=== PATIENT | female | born 1985 | race Caucasian/White ===

== ENCOUNTER → 2016-07-04 | Outpatient (CLI) | payer MEDICAID ==
[~2016-07-04] MED LIST: CEPH-38 PO; DOCU-143 PO; FERR-65 PO; HYDR25CA5 PO; IBUP-1773 PO; NITR-65 PO; ONDA4TAB8 PO; OXYC-197 PO; PREN1TAB86 PO; SULF1TAB38 PO
--- OUTSIDE RECORDS SUMMARY | 2016-07-04 10:56 | XMS REPORT | Continuity of Care Document ---
Author Author Interface Organization Interface Address Unknown Phone Unavailable Problems Problem Status Onset Date Classification Date Reported Comments Source Encounter for other screening for genetic and chromosomal anomalies Active [facility] Medications Medication Details Route Status Patient Instructions Ordering Provider Order Date Source Allergies, Adverse Reactions, Alerts Substance Category Reaction Severity Reaction type Status Date Reported Comments Source Immunizations Immunization Date Given Site Status Last Updated Comments Source Results Order Name Results Value Reference Range Date Interpretation Comments Source Parent NGS Parent NGS Genomics Case Created 03/08 NA This order is for collection purposes only. The Genomics case will be created seperately.
[facility] zzzMole Gen zzzMole Gen 03/08/2016 [facility] Final Report Final Report Blood DNA isolation/storage for future study. Lab use only. Electronically signed by: Tish Donovan 03/14/2016 10:05</br> 03/08/2016 Electronically signed by: Tish Donovan 03/14/2016 10:05 [facility] Vital Signs Vital Sign Value Date Comments Source Encounters Location Location Details Encounter Type Encounter Number Reason For Visit Attending Provider ADM Date DC Date Status Source [facility] REF [id number] Amadeo Trimble 03/08/2016 03/08/2016 [facility] Procedures Procedure Code Date Perfomer Comments Source
--- NOTE | 2016-07-04 11:48 | Diagnostic Imaging Report ---
First trimester OB ultrasound. INDICATION: Dating. FINDINGS: There is a normal-appearing single intrauterine . An embryo is seen with cardiac activity at 150 beats per minute. The crown-rump length is at 11 weeks and 3 days. IONA is 01/20/17. The ovaries are obscured by bowel gas. IMPRESSION: Live single intrauterine . Dictated by: Dictated on workstation # [id number]
== END ==
LOC: RAD 10:53
PROVIDERS: ATTEND Family Medicine
DX: Z34.81 Encounter for supervision of other normal pregnancy, first trimester (principal)
CPT/HCPCS: 76801

== ENCOUNTER → 2016-12-08 | Outpatient (CLI) | payer MEDICAID | LOC: LAB 09:23 | PROVIDERS: ATTEND Family Medicine | DX: O99.810 Abnormal glucose complicating pregnancy (principal); Z3A.00 Weeks of gestation of pregnancy not specified | CPT/HCPCS: 36415; 82951; 82952; 82962 ==

== ENCOUNTER → 2016-12-20 | Outpatient (CLI) | payer MEDICAID ==
[~2016-12-20] MED LIST changes: +DOCU100C37 PO; +GLYB1.253 PO; +HYDR-3812 PO; +SERT25TA PO
--- NOTE | 2016-12-20 17:05 | Diagnostic Imaging Report ---
INDICATION: Maternal gestational diabetes. EXAMINATION: Ultrasonography was obtained. FINDINGS: Powell intrauterine in cephalic presentation. cardiac activity is present with a rate of 150 beats per minute. Amniotic fluid index is 14 cm. breathing and body movement as well as tone are documented. IMPRESSION: Normal biophysical profile score of 8/8. Dictated by: Dictated on workstation # [id number]
[2016-12-20 17:34] VITALS: BP 130/72
== END ==
LOC: RAD 16:26
PROVIDERS: ATTEND Family Medicine
DX: O24.419 Gestational diabetes mellitus in pregnancy, unspecified control (principal); Z3A.00 Weeks of gestation of pregnancy not specified
CPT/HCPCS: 76819

== ENCOUNTER 2016-12-27 12:57 | Outpatient (CLI) | payer MEDICAID ==
[~2016-12-27] VITALS: Ht 162.6 cm; Wt 113.4 kg
[~2016-12-27 12:57] MED LIST changes: -DOCU100C37 PO; -GLYB1.253 PO; -HYDR-3812 PO; -SERT25TA PO
[2016-12-27] MEDS ORDERED: SERT25TA PO (13:10)
[2016-12-27] MEDS ORDERED: GLYB1.253 PO (13:10)
[2016-12-27 13:11] VITALS: BP 118/68
== END 2016-12-27 13:32 | disposition home or self-care (01) ==
LOC: PREOP 12:57
PROVIDERS: ATTEND Obstetrics & Gynecology
DX: Z01.818 Encounter for other preprocedural examination (principal); O34.219 Maternal care for unspecified type scar from previous cesarean delivery; Z3A.00 Weeks of gestation of pregnancy not specified
CPT/HCPCS: 87081

== ENCOUNTER 2017-01-01 06:02 | Inpatient (IN) | payer MEDICAID ==
[~2017-01-01] VITALS: Ht 162.6 cm; Wt 112.9 kg
[2017-01-01] VITALS (9 sets, daily range): BP systolic 113–124; BP diastolic 54–72
[~2017-01-01 06:02] MED LIST changes: +GLYB1.253 PO; +SERT25TA PO; +ceFAZolin 2 GM/50 ML NS 50 ML ONE
[2017-01-01] MEDS ORDERED: LACTATED RINGERS 1,000 ML IV PRN (06:10)
--- OUTSIDE RECORDS SUMMARY | 2017-01-01 06:10 | XMS REPORT ---
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
--- OUTSIDE RECORDS SUMMARY | 2017-01-01 06:10 | XMS REPORT ---
Author Author PAYTON SANTILLAN Organization eClinicalWorks Address Unknown Phone Unavailable Care Team Providers Care Furniture Crater Name Role Phone PAYTON SANTILLAN CP Unavailable Allergies, Adverse Reactions, Alerts Substance Reaction Event Type N.K.D.A. Info Not Available Non Drug Allergy Problems Problem Type Condition Code Onset Dates Condition Status Assessment Sore throat J02.9 Active Assessment Z33.1 Active Assessment Allergic rhinitis J30.9 Active Medications No Known Medications Procedures Procedure Coding System Code Date Office Visit, New Pt., Level 3 CPT-4 81205 September 12, 2015 STREP A ASSAY W/OPTIC CPT-4 40078 September 12, 2015 Vital Signs Date/Time: September 12, 2015 Temperature 98 F Weight 229 lbs Height 64 in BMI 39.30 Index Blood Pressure Diastolic 66 mmHg Blood Pressure Systolic 118 mmHg Cardiac Monitoring Heart Rate 80 bpm Results Name Result Date Reference Range Unit Abnormality Flag STREP A (IN HOUSE) ----STREP A Negative [id number] ----Control + [id number] ----Lot # [id number] ----Exp date [id number] Summary Purpose eClinicalWorks Submission
--- OUTSIDE RECORDS SUMMARY | 2017-01-01 06:10 | XMS REPORT ---
Author Author LEDA HAILE [facility] eClinicalWorks Address Unknown Phone Unavailable Care Team Providers Care Director Semiconductor Name Role Phone LEDA HAILE CP Unavailable Allergies No Known Allergies Problems Problem Type Condition Code Onset Dates Condition Status Assessment Fungal infection of skin B36.9 Active Problem Previous section Z98.89 Active Problem care, subsequent , second trimester Z34.82 Active Problem Intrauterine growth restriction (IUGR) affecting care of mother, second trimester, single gestation O36.5920 Active Assessment Third trimester at less than 36 weeks Z33.1 Active Assessment Encounter for immunization Z23 Active Problem Streptococcus, group B, as the cause of diseases classified elsewhere B95.1 Active Problem Unspecified infection of urinary tract in , second trimester O23.42 Active Medications Medication Code System Code Instructions Start Date End Date Status Dosage Vitamins [facility] [address]-92 (Dis) Orally not defined Clotrimazole [facility] [address]-68 1 % Externally Twice a day December 14, 2015 1 application to affected area Procedures Procedure Coding System Code Date TDAP (BOOSTRIX) CPT-4 07482 December 14, 2015 SINGLE IMMUNIZATION ADMIN CPT-4 28752 December 14, 2015 URINE-NO MICRO CPT-4 74385 December 14, 2015 Vital Signs Date/Time: December 14, 2015 Cardiac Monitoring Heart Rate 76 bpm Weight 225.0 lbs Height 64 in BMI 38.62 Index Blood Pressure Diastolic 74 mmHg Blood Pressure Systolic 123 mmHg Results No Known Results Immunizations Vaccine Administration Date TDAP (BOOSTRIX) December 14, 2015 Summary Purpose eClinicalWorks Submission
--- OUTSIDE RECORDS SUMMARY | 2017-01-01 06:10 | XMS REPORT ---
Author Author LEDA HAILE [facility] eClinicalWorks Address Unknown Phone Unavailable Care Team Providers Care Hub Cutter Name Role Phone LEDA HAILE CP Unavailable Allergies No Known Allergies Problems Problem Type Condition Code Onset Dates Condition Status Problem Previous section Z98.89 Active Problem care, subsequent , second trimester Z34.82 Active Problem Intrauterine growth restriction (IUGR) affecting care of mother, second trimester, single gestation O36.5920 Active Assessment Third trimester at less than 36 weeks Z33.1 Active Assessment 33 weeks gestation of Z3A.33 Active Problem Streptococcus, group B, as the cause of diseases classified elsewhere B95.1 Active Problem Unspecified infection of urinary tract in , second trimester O23.42 Active Medications Medication Code System Code Instructions Start Date End Date Status Dosage Vitamins [facility] [address]-72 (Dis) Orally not defined Clotrimazole [facility] [address]-67 1 % Externally Twice a day December 14, 2015 1 application to affected area Procedures Procedure Coding System Code Date Office Visit, Est Pt., Level 2 CPT-4 27589 Dec 28, 2015 URINE-NO MICRO CPT-4 54827 Dec 28, 2015 Vital Signs Date/Time: Dec 28, 2015 Cardiac Monitoring Heart Rate 88 bpm Weight 223.6 lbs Height 64 in BMI 38.381 Index Blood Pressure Diastolic 69 mmHg Blood Pressure Systolic 131 mmHg Results No Known Results Summary Purpose eClinicalWorks Submission
--- OUTSIDE RECORDS SUMMARY | 2017-01-01 06:11 | XMS REPORT ---
Author Author LEDA HAILE [facility] eClinicalWorks Address Unknown Phone Unavailable Care Team Providers Care Stock Holder Name Role Phone LEDA HAILE Unavailable Allergies No Known Allergies Problems No Known Problems Medications No Known Medications Results No Known Results Summary Purpose eClinicalWorks Submission
--- OUTSIDE RECORDS SUMMARY | 2017-01-01 06:11 | XMS REPORT ---
Author Author LEDA HAILE Organization [facility] Address [address] [place] [address] Care Team Providers Care Boring Mill Set Up Operator Name Role Phone ALICE HAILEY Unavailable PROBLEMS Type Condition ICD9-CM Code YGU56-LT Code Onset Dates Condition Status SNOMED Code Assessment care, subsequent in third trimester Z34.83 Jan, Active [id number] Assessment 37 weeks gestation of Z3A.37 Jan, Active [id number] ALLERGIES Unknown Allergies SOCIAL HISTORY No smoking Hx information available PLAN OF CARE VITAL SIGNS Height 64 in 2016-01-24 Weight 228.4 lbs 2016-01-24 Heart Rate 72 bpm 2016-01-24 Respiratory Rate 18 2016-01-24 BMI 39.205 kg/m2 2016-01-24 Blood pressure systolic 132 mmHg 2016-01-24 Blood pressure diastolic 83 mmHg 2016-01-24 MEDICATIONS Medication Instructions Dosage Frequency Start Date End Date Duration Status Vitamins (Dis) Active RESULTS Name Result Date Reference Range UA LONG DIP (IN HOUSE) 2016-01-24 Lot # [id number] Exp date Clarity Clear Color Dark Yellow Odor Yes GLU Negative JAMAL Negative KET Trace SG >=1.030 BLO Trace-Intact pH 6.0 Protein Trace URO 1.0 NIT Negative BING 1+ Lot # Exp date CULTURE, URINE 2016-01-24 Urine Culture, Routine Final report Result 1 PROCEDURES Procedure Date Ordered Related Diagnosis Body Site URINALYSIS, AUTO, W/O SCOPE Jan 24, 2016 Office Visit, Est Pt., Level 2 Jan 24, 2016 IMMUNIZATIONS No Known Immunizations
--- OUTSIDE RECORDS SUMMARY | 2017-01-01 06:11 | XMS REPORT ---
Author Author LEDA HAILE [facility] Address [address] [place] [address] Care Team Providers Care Subsea Engineer Name Role Phone LEDA HAILE Unavailable PROBLEMS Unknown Problems ALLERGIES Unknown Allergies SOCIAL HISTORY No smoking Hx information available PLAN OF CARE VITAL SIGNS MEDICATIONS Medication Instructions Dosage Frequency Start Date End Date Duration Status Amoxicillin 500 MG Orally 2 times a day 1 capsule 12h Jan,Jan 07 days Active RESULTS No Results PROCEDURES No Known procedures IMMUNIZATIONS No Known Immunizations
--- OUTSIDE RECORDS SUMMARY | 2017-01-01 06:11 | XMS REPORT ---
Author Author LEDA HAILE eClinicalWorks Address Unknown Phone Unavailable Care Team Providers Care Financial Recording Clerk Name Role Phone LEDA HAILE CP Unavailable Allergies, Adverse Reactions, Alerts Substance Reaction Event Type N.K.D.A. 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
--- OUTSIDE RECORDS SUMMARY | 2017-01-01 06:11 | XMS REPORT ---
Author Author LEDA HAILE [facility] eClinicalWorks Address Unknown Phone Unavailable Care Team Providers Care Network Systems Analyst Name Role Phone LEDA HAILE Unavailable Allergies No Known Allergies Problems No Known Problems Medications No Known Medications Results No Known Results Summary Purpose eClinicalWorks Submission
[2017-01-01] MEDS ORDERED: FAMOTIDINE 20MG/2ML IV (PEPCID) IV ONE ×2 (06:15→07:00)
[2017-01-01] MEDS ORDERED: CITRIC ACID/SOB CIT (BICITRA) 30 ML UDC PO ONE ×2 (06:15→07:00)
[2017-01-01] MEDS ORDERED: METOCLOPRAMIDE INJ 10 MG/2 ML (REGLAN) IV ONE ×2 (06:15→07:00)
[2017-01-01] MEDS ORDERED: CATHETER FLUSH 10 ML SYR IV PRN (06:15)
[2017-01-01 06:51] LABS: BASOPHILS % (AUTO) 0 % (0-10); EOSINOPHILS # (AUTO) 0.2 10^3/uL (0.0-0.3); EOSINOPHILS % (AUTO) 2 % (0-10); LYMPHOCYTES # (AUTO) 1.4 X 10^3 (1.0-4.0); LYMPHOCYTES % (AUTO) 12 % (12-44); MEAN CORPUSCULAR HEMOGLOBIN 28 PG (25-34); MEAN CORPUSCULAR HGB CONC 32 G/DL (32-36); MEAN CORPUSCULAR VOLUME 86 FL (80-99); MEAN PLATELET VOLUME 11.5 FL (7.4-10.4); MONOCYTES # (AUTO) 0.9 X 10^3 (0.0-1.0); MONOCYTES % (AUTO) 8 % (0-12); NEUTROPHILS # (AUTO) 8.9 X 10^3 (1.8-7.8); NEUTROPHILS % (AUTO) 78 % (42-75); PLATELET COUNT 162 10^3/uL (130-400); RED BLOOD COUNT 3.89 10^6/uL (4.35-5.85); WHITE BLOOD COUNT 11.3 10^3/uL (4.3-11.0)
[2017-01-01] MEDS ORDERED: LACTATED RINGERS 1,000 ML IV SCH ×2 (06:55)
[2017-01-01] MEDS ORDERED: morphine PF (DURAMORPH) 10 MG/10 ML AMP ONE (07:10)
[2017-01-01] MEDS ORDERED: fentaNYL INJECTION 100 MCG/2 ML AMP ONE (07:11)
--- NOTE | 2017-01-01 07:26 | History & Physical-OB ---
OB - Chief Complaint & HPI Date/Time Date of Admission: Date of Admission: Jan 01, 2017 at 6:02 am Time Seen by Provider: 07:15 Chief Complaint/History OB-Reason for Admission/Chief: Section Hx : 3 Hx Para: 2 Expected Date of Delivery: Jan 15, 2017 Gestational Age in Weeks: 38 Indication for : desires repeat Other reason for admission: Repeat GDMA2 on glyburide with limited BS control Admission Nurse Assessment Rev: Yes History of Labs O pos Antibody neg RI RPR NR HBsAg NR HIV NR GC neg GBS + Allergies and Home Medications Allergies Coded Allergies: No Known Drug Allergies (Unverified , 12/27/16) Home Medications Glyburide 1.25 Mg Tablet, 1.25 MG PO BID, (Reported) Vit W-Ca,Fe,FA(<1 mg) 1 Each Tablet, 1 TAB PO DAILY, (Reported) Sertraline HCl 25 Mg Tablet, 25 MG PO DAILY, (Reported) OB - History Hx of Present Care: Yes Ultrasounds: Normal mid trimester US Obstetrical Complications: Gestational Diabetes Medical Complications: Other (obesity) Obstetrical History Hx Termination: No Hx Multiple Gestation: No Hx Complication: No Hx Induced Hypertens: No Hx Maternal Gestational Diabet: No Delivery History Hx Dystocia: No Hx Large For Gestational Age I: No Hx Small for Gestational Age I: No Hx Section: Yes Hx Vaginal Delivery Post C-Sec: No Hx Blood Disorders: No Adverse Rxn to Tranfusion: No (N/A) Patient Past Medical History n/a Social History/Family History HIV/AIDS: No Recent Infectious Disease Expo: No Sexually Transmitted Disease: No Alcohol Use: Denies Use Recreational Drug Use: No Immunizations Tetanus Booster (TDap): Unknown OB - Admission Exam Physical Exam Date Seen by Provider: Jan 01, 2017 Time Seen by Provider: 07:15 Vitals: Vital Signs 01/01/17 06:13 Temp 98.0 Pulse 83 Resp 20 B/P (MAP) 122/60 O2 Delivery Room Air HEENT: NCAT Heart: Rhythm Normal Lungs: Clear Abdomen: Gravid Extremities: Normal Reflexes: Normal Heart Rate: 130's Accelerations: Accelerations Present Decelerations: No Decelerations Short Term Variability: Present Comb Machine Operator Variability: Average (6-25) Contractions on Admission: >10 Minutes Apart Intensity: Mild Labs Laboratory Tests Test 01/01/17 06:30 01/01/17 06:40 Range/Units White Blood Count 11.3 H 4.3-11.0 10^3/uL Red Blood Count 3.89 L 4.35-5.85 10^6/uL Hemoglobin 10.8 L 11.5-16.0 G/DL Hematocrit 33 L 35-52 % Mean Corpuscular Volume 86 80-99 FL Mean Corpuscular Hemoglobin 28 25-34 PG Mean Corpuscular Hemoglobin Concent 32 32-36 G/DL Red Cell Distribution Width 17.0 H 10.0-14.5 % Platelet Count 162 130-400 10^3/uL Mean Platelet Volume 11.5 H 7.4-10.4 FL Neutrophils (%) (Auto) 78 H 42-75 % Lymphocytes (%) (Auto) 12 12-44 % Monocytes (%) (Auto) 8 0-12 % Eosinophils (%) (Auto) 2 0-10 % Basophils (%) (Auto) 0 0-10 % Neutrophils # (Auto) 8.9 H 1.8-7.8 X 10^3 Lymphocytes # (Auto) 1.4 1.0-4.0 X 10^3 Monocytes # (Auto) 0.9 0.0-1.0 X 10^3 Eosinophils # (Auto) 0.2 0.0-0.3 10^3/uL Basophils # (Auto) 0.0 0.0-0.1 10^3/uL Glucometer 99 70-110 MG/DL OB - Assessment/Plan/Diagnosis Assessment Assessment: section Plan Plan: Section Other Plan RLTCS with RRS Discharge Diagnosis Diagnosis: 31 yo @ 38 weeks GDMA2 BMI 42 GBS + Family history of Ovarian ca JODI BANERJEE DO Jan 01, 2017 7:26 am
[2017-01-01] MEDS ORDERED: ONDANSETRON 4 MG/2 ML (SDV) Z0FRAN ONE ×2 (08:09→08:32)
[2017-01-01] MEDS ORDERED: OXYTOCIN/NORMAL SALINE 500 ML IV ONE ×2 (08:09→08:32)
[2017-01-01] MEDS ORDERED: PHENYLEPHRINE 100 MCG/ML 10 ML (ANESTHESIA) SYR ONE (08:33)
[2017-01-01] MEDS ORDERED: ONDANSETRON 4 MG/2 ML (SDV) Z0FRAN IV PRN (08:45)
[2017-01-01] MEDS ORDERED: morphine PF (DURAMORPH) 10 MG/10 ML AMP INJ ONE (08:45)
[2017-01-01] MEDS ORDERED: fentaNYL INJECTION 100 MCG/2 ML AMP INJ ONE (08:45)
[2017-01-01] MEDS ORDERED: NALOXONE 0.4 MG/ML 1 ML (NARCAN) VIAL IV PRN (08:45)
--- NOTE | 2017-01-01 08:56 | Progress Note-Post Operative ---
Post-Operative Progess Note Surgeon (s)/Hand Developer (s) Surgeon JODI BANERJEE DO Hand Developer: Pam Mattson RN Pre-Operative Diagnosis 38 week IUP, GDMA2, BMI 46, Family Hx of Ovarian Ca Post-Operative Diagnosis same Procedure & Operative Findings Date of Procedure 01/01/17 Procedure Performed/Findings Repeat low transverse section with bilateral salpingectomy Anesthesia spinal EBL 500 mL Urine output 50 mL cleared and the procedure Fluids 1000 mL's of lactate ringer solution Findings: Live female with a weight of 8 lbs. 8 oz. Apgars of 1, 4, 9 Indications for procedure: This 31-year-old female was a consultation to me from the [facility] for repeat delivery. The patient had had 2 prior deliveries. The patient also wished to proceed with risk reducing bilateral salpingectomy as she does have a family history of ovarian cancer and is completed her family with this . Risk of the procedure was discussed with the patient in detail as well as permanent sterilization. All the patient's questions were answered, again in the preoperative area questions were entertained by her and her all other questions were answered. Patient was then taken the operating room. Operative report in detail: Once in the operating room spinal analgesia was found to be adequate she's placed in the supine position with a leftward tilt prepped and draped in the normal sterile fashion. Anesthesia was tested and a timeout was performed. I didn't make a Pfannenstiel skin incision to the previously existing scar using the knife and carried down to the underlying fascia using the Bovie cautery. The fascial incisions extended laterally using Bovie cautery. The superior aspect the fascial incision is grasped with [place] clamps and tented upward and dissected off the underlying rectus muscles. The inferior aspect is then grasped using Sushila clamps tented upward and dissected off the underlying rectus muscles. The rectus muscles were then dissected on the midline sharply using Deleon scissors. The peritoneum is entered bluntly and extended using traction. The Iban ring retractor is then placed within the peritoneal incision which offers excellent lateral sidewall retraction. I identify the lower uterine segment which sound to be thinned out and make a incision using the knife through the vesicouterine peritoneum. I then bluntly dissect this off the lower uterine segment creating a bladder flap. I then proceeded with my myotomy until membranes are visualized at which point I extend the uterine incision laterally and superiorly using bandage scissors. Amniotomy is performed using an Allis clamp. The is found the vertex presentation with gentle fundal pressure the infant's head is elevated up to the incision and delivered to the incision. There is a nuchal cord reduced 1, the nares and oropharynx are bulb suctioned anterior posterior shoulders were delivered and the infant is then brought onto the operative field work of the cord is doubly clamped and cut. I then handed the infant off to the awaiting pediatric nurses. Cord blood is collected for analysis. Three-vessel cord with intact placenta is delivered spontaneous thereafter. IV Pitocin is initiated to facilitate uterine contraction. Uterus becomes firm with bimanual massage. The uterus is then exteriorized and cleared of all endometrial clots and debris. I then closed the uterine incision using 0 Vicryl suture in a running locked fashion. A second layer of imbricating 0 Monocryl was placed and excellent hemostasis is noted after doing so. I then performed the following dissection bilaterally: Starting at the mesial salpinx I created a window using the Bovie cautery and tie off the proximal isthmic portion of the fallopian tube using 2-0 Vicryl suture and then amputate the tube at this insertion point. I then take my dissection down the mesosalpinx using Bovie cautery to achieve hemostasis during my dissection. At the distal ampullary portion, and connection to the ovary I placed a 2-0 Vicryl tie around this and amputate the distal ampullary portion of the tube using Bovie cautery. Both fallopian tubes are sent as left and right tube. Excellent hemostasis is noted after doing this. I didn't place years back within the pelvis and copiously irrigated the pelvis using normal saline there is no active bleeding noted from any my dissection planes. I then placed Interceed anti-adhesive over my low transverse incision and proceed with closing the peritoneum using 3-0 Vicryl suture in a running fashion. The rectus muscles are reapproximated using 3-0 Vicryl suture in interrupted fashion. The fascia is reapproximated using 0 Vicryl suture in a running fashion. The subcutaneous tissues reapproximated using 30 plain in an interrupted subcutaneous stitch. And the skin is reapproximated using 4-0 Monocryl in a running subcuticular. Dermabond was placed over the incision and a sterile dressing is adhesed over this using white tape. The patient tolerated the procedure well and taken to recovery in stable condition. Lap and sponge count is correct at the end of the procedure and she will cramp as correct as well. 2 g of Ancef were given preoperative for infection prophylaxis. Anesthesia Type spinal w duramorph Estimated Blood Loss Estimated blood loss (mL): 500 Specimens/Packing Specimens Removed fallopian tubes, placenta JODI BANERJEE DO Jan 01, 2017 8:56 am
[2017-01-01] MEDS ORDERED: OXYTOCIN/NORMAL SALINE 500 ML IV SCH (08:57)
[2017-01-01] MEDS ORDERED: MEASLES,MUMPS,RUBELLA 1 EA INJ SC SCH (09:00)
[2017-01-01] MEDS ORDERED: HYDROmorphone (DILAUDID) 2 MG/ML VIAL IVP PRN (09:00)
[2017-01-01] MEDS ORDERED: ONDANSETRON 4 MG/2 ML (SDV) Z0FRAN IVP PRN (09:00)
[2017-01-01] MEDS ORDERED: TETANUS,DIPTH,PERTUSS P/F (BOOSTRIX) 0.5 ML VIAL IM SCH (09:00)
[2017-01-01] MEDS: KETOROLAC 30 MG/ML VIAL IVP SCH ×2 (13:27→20:39)
[2017-01-01] MEDS ORDERED: CATHETER FLUSH 10 ML SYR IV SCH (14:00)
[2017-01-01] MEDS: DOCUSATE SODIUM 100 MG (COLACE) CAP PO SCH (20:38)
[2017-01-02] MEDS: HYDROcodone/APAP 5 MG/325 MG (LORTAB) TAB PO PRN ×3 (01:08→10:41)
[2017-01-02] MEDS: KETOROLAC 30 MG/ML VIAL IVP SCH (02:18)
[2017-01-02 04:25] VITALS: BP 105/62
[2017-01-02 06:40] LABS: BASOPHILS % (AUTO) 0 % (0-10); EOSINOPHILS # (AUTO) 0.1 10^3/uL (0.0-0.3); EOSINOPHILS % (AUTO) 2 % (0-10); LYMPHOCYTES # (AUTO) 1.1 X 10^3 (1.0-4.0); LYMPHOCYTES % (AUTO) 14 % (12-44); MEAN CORPUSCULAR HEMOGLOBIN 28 PG (25-34); MEAN CORPUSCULAR HGB CONC 32 G/DL (32-36); MEAN CORPUSCULAR VOLUME 87 FL (80-99); MEAN PLATELET VOLUME 11.5 FL (7.4-10.4); MONOCYTES # (AUTO) 0.6 X 10^3 (0.0-1.0); MONOCYTES % (AUTO) 8 % (0-12); NEUTROPHILS % (AUTO) 76 % (42-75); PLATELET COUNT 138 10^3/uL (130-400); RED BLOOD COUNT 3.49 10^6/uL (4.35-5.85); RED CELL DISTRIBUTION WIDTH 16.9 % (10.0-14.5); WHITE BLOOD COUNT 7.8 10^3/uL (4.3-11.0)
[2017-01-02 08:15] VITALS: BP 116/52
[2017-01-02] MEDS: DOCUSATE SODIUM 100 MG (COLACE) CAP PO SCH (08:32)
[2017-01-02] MEDS ORDERED: IBUPROFEN 600 MG (MOTRIN) TAB PO SCH (09:00)
--- NOTE | 2017-01-02 09:30 | Anesthesia-Regional Post-Op ---
Regional Patient Condition Mental Status: Alert, Oriented x3 Circulation: Same as Pre-Op Headache: Absent Sensation: Full Recovery Motor Block: Absent Post Op Complications Complications None Follow Up Care/Instructions Patient Instructions None needed. Anesthesia/Patient Condition Patient is doing well, no complaints, stable vital signs, no apparent adverse anesthesia problems. No complications reported per nursing. JOYCELYN ROSARIO CRNA Jan 02, 2017 09:30
[2017-01-02] MEDS ORDERED: HYDR-3812 PO (09:31)
[2017-01-02] MEDS ORDERED: IBUP-1773 PO (09:31)
[2017-01-02] MEDS ORDERED: DOCU100C37 PO (09:31)
--- NOTE | 2017-01-02 09:32 | Discharge Inst-Women's Service ---
Discharge Inst-Women's Serv Depart Medication/Instructions New, Converted or Re-Newed RX: RX on Chart Final Diagnosis DR. Clark in 7-10 days, Dr. Herman in 6 weeks. Consults/Follow Up Additional Follow Up: Yes Activity Activity: Activity as Tolerated Driving Instructions: No Driving for 1 Week NO SMOKING: NO SMOKING Nothing Inside Vagina: No Douching, No [place], No Tampons Diet Discharge Diet: No Restrictions Symptoms to Report to : Bleeding Excessive, Pain Increased, Fever Over 101 Degrees F, Vaginal Bleeding Increase, Questions/Concerns For Any Problems or Questions: Contact Your Physician Skin/Wound Care Infection Signs and Symptoms: Increased Redness, Foul Odor of Wound, Increased Drainage, Skin Itchy or Has a Rash, Increased Swelling, Temperature Above 101 F Operative Area Clean and Dry: Keep Incision Clean/Dry Stitches/[place]/Dermabond: Dermabond, Care of Stitches Bathing Instructions: JODI Gregg DO Jan 02, 2017 9:32 am
--- NOTE | 2017-01-02 09:34 | Progress Note-Standard ---
Standard Progress Note Progress Notes/Assess & Plan Date Seen by Provider: Jan 02, 2017 Time Seen by Provider: 08:45 Progress/Assessment & Plan Patient doing well POD 1 RLTCS w/ RRS. Reports good pain control. Ambulating and voiding freely. Lochia light. transferred to [place] and requesting early discharge. Vital Sign - Last 24 Hours 01/01/17 01/01/17 01/01/17 01/01/17 09:55 10:10 10:25 10:40 Temp 98.0 97.5 98.2 98.0 Pulse 82 80 88 84 Resp 20 18 20 18 B/P (MAP) 118/54 122/66 116/62 118/62 O2 Delivery Room Air Room Air Room Air Room Air 01/01/17 01/01/17 01/01/17 01/01/17 12:00 16:00 20:40 23:55 Temp 97.6 98.2 98.4 97.6 Pulse 92 88 82 76 Resp 18 18 18 18 B/P (MAP) 124/68 122/72 116/70 113/67 Pulse Ox 98 98 O2 Delivery Room Air Room Air Room Air Room Air 01/02/17 01/02/17 04:25 08:15 Temp 97.6 96.8 Pulse 83 80 Resp 18 18 B/P (MAP) 105/62 116/52 Pulse Ox 98 99 O2 Delivery Room Air Room Air Incision: c/d/i Laboratory Tests Test 01/02/17 06:16 Range/Units White Blood Count 7.8 4.3-11.0 10^3/uL Red Blood Count 3.49 L 4.35-5.85 10^6/uL Hemoglobin 9.7 L 11.5-16.0 G/DL Hematocrit 31 L 35-52 % Mean Corpuscular Volume 87 80-99 FL Mean Corpuscular Hemoglobin 28 25-34 PG Mean Corpuscular Hemoglobin Concent 32 32-36 G/DL Red Cell Distribution Width 16.9 H 10.0-14.5 % Platelet Count 138 130-400 10^3/uL Mean Platelet Volume 11.5 H 7.4-10.4 FL Neutrophils (%) (Auto) 76 H 42-75 % Lymphocytes (%) (Auto) 14 12-44 % Monocytes (%) (Auto) 8 0-12 % Eosinophils (%) (Auto) 2 0-10 % Basophils (%) (Auto) 0 0-10 % Neutrophils # (Auto) 6.0 1.8-7.8 X 10^3 Lymphocytes # (Auto) 1.1 1.0-4.0 X 10^3 Monocytes # (Auto) 0.6 0.0-1.0 X 10^3 Eosinophils # (Auto) 0.1 0.0-0.3 10^3/uL Basophils # (Auto) 0.0 0.0-0.1 10^3/uL Diagnosis: POD 1 RLTCS w RRS Acute blood loss anemia P: Replace iron, anticipate dc later today due to transfer if patient continues to be stable PO/ PP precautions reviewed. JODI BANERJEE DO Jan 02, 2017 09:34
[2017-01-02 13:10] VITALS: BP 125/78
== END 2017-01-02 13:30 | disposition home or self-care (01) | DRG 765 ==
LOC: LDRP 06:02 → WS 10:55
PROVIDERS: ADMIT Obstetrics & Gynecology; ATTEND Obstetrics & Gynecology
PROC: 0UT70ZZ Resection of Bilateral Fallopian Tubes, Open Approach (ICD-10-PCS; 2017-01-01)
PROC: 10D00Z1 Extraction of Products of Conception, Low, Open Approach (ICD-10-PCS; principal; 2017-01-01 07:22)
DX: O24.425 Gestational diabetes mellitus in childbirth, controlled by oral hypoglycemic drugs (principal); O34.211 Maternal care for low transverse scar from previous cesarean delivery; O99.214 Obesity complicating childbirth; E66.01 Morbid (severe) obesity due to excess calories; O99.824 Streptococcus B carrier state complicating childbirth; Z80.41 Family history of malignant neoplasm of ovary; O90.81 Anemia of the puerperium; D62 Acute posthemorrhagic anemia; Z68.41 Body mass index [BMI] 40.0-44.9, adult; Z3A.38 38 weeks gestation of pregnancy; Z37.0 Single live birth; Z79.84 Long term (current) use of oral hypoglycemic drugs
CPT/HCPCS: 36415; 82962; 85025; 86850; 86900; 86901; 94664

== ENCOUNTER → 2023-03-26 | Outpatient (CLI) | payer OTHER ==
[~2023-03-26] VITALS: Ht 162.6 cm; Wt 98.6 kg
[~2023-03-26] MED LIST changes: +ACHD5005 PO; +DOCU100C37 PO; +GADOTERATE 0.5 MMOL/ML (CLARISCAN) 15 ML VIAL IV ONE; +IOHEXOL 300 MG/ML 50 ML (OMNIPAQUE 300) VIAL IV ONE; +LIDOCAINE 1% INJ 10 ML VIAL INJ ONE; +LIDOCAINE 1% INJ 10 ML VIAL ONE; -OXYC-197 PO; +OXYC1TAB87 PO; -ceFAZolin 2 GM/50 ML NS 50 ML ONE
--- NOTE | 2023-03-26 15:10 | Diagnostic Imaging Report ---
INDICATION: Right shoulder pain. Patient presents for right shoulder injection of gadolinium contrast solution using fluoroscopy prior to MRI. Patient was brought to the procedure room and placed on the table in the supine position. Right shoulder was prepped and draped in the usual sterile fashion. A small amount of 1% lidocaine was utilized for local anesthesia. A 22-gauge needle was advanced into the right shoulder at the rotator interval. A 15 mm solution of iodinated contrast, normal saline, and gadolinium was injected under fluoroscopic observation. 13 seconds of fluoroscopic time was utilized. The needle was withdrawn, and hemostasis was obtained. Patient tolerated the procedure well and was sent to MRI in satisfactory condition. IMPRESSION: Successful right shoulder injection of gadolinium contrast solution, using fluoroscopy. Dictated by: Dictated on workstation # [id number]
--- NOTE | 2023-03-26 17:25 | Diagnostic Imaging Report ---
INDICATION: Chronic shoulder pain. EXAMINATION: Right shoulder MRI with contrast 03/26/2023. FINDINGS: The supraspinatus and infraspinatus tendons appear intact. Subscapularis tendon also intact. Biceps tendon lies in the bicipital groove and appears unremarkable. A fair amount of contrast extends along the biceps tendon sheath into the visualized more distal arm with the biceps tendon sheath somewhat patulous in appearance correlate with symptoms. Labrum unremarkable. Muscle volume appears maintained. Visualized axilla unremarkable. IMPRESSION: 1. Rotator cuff intact. 2. Labrum and biceps tendon unremarkable. 3. Fair amount of contrast within the visualized biceps tendon sheath perhaps normal for patient but somewhat patulous in appearance. Correlate with symptoms and history. Dictated by: Dictated on workstation # [id number]
== END ==
LOC: RAD 12:37
PROVIDERS: ATTEND Nurse Practitioner
DX: M75.101 Unspecified rotator cuff tear or rupture of right shoulder, not specified as traumatic (principal)
CPT/HCPCS: 23350; 73040; 73225